=== PATIENT | female | born 1970 | race Caucasian/White ===

== ENCOUNTER 2020-07-07 07:00 | Day surgery (SDC) | payer BC ==
[~2020-07-07 07:00] MED LIST: Lactated Ringers 1,000 ML IV SCH; Lidocaine 1%/Sod Bicarbonate in NS 8.4% 1 ML Syringe IDERM PRN; Sodium Chloride 0.9% 10 ML Syringe FLUSH PRN
[2020-07-07] MEDS ORDERED: Bupivacaine 0.5%/EPINEPHrine 1:200,000 50 ML MDV ONE (07:12)
--- NOTE | 2020-07-07 08:53 | PCM.PRNOTE ---
- Free Text/Narrative Note: Date: 07/07/2020 Operation: wide local excision of scalp basal cell carcinoma Surgeon: Poncho Mcgrath MD Findings: 5 mm lesion at apical region of scalp, excised in a longitudinally oriented ellipse with gross 5 mm margin. Frozen section confirmed negative margins. Detailed Report: The patient was taken to the OR and placed supine. Time out was performed. The scalp hair around the lesion was clipped, and the skin was prepped with iodine solution. Sterile drapes were applied. A total of 10 cc 0.5% marcaine with epinephrine was injected intradermally around the lesion. An ellipse was marked, encompassing the lesion with a measured 5 mm gross margin. The 15 blade was used to incise through skin to subcutaneous fat. The specimen was marked with a silk stitch at the anterior aspect and sent for frozen section analysis. Margins were reported as negative. Hemostasis was achieved with monopolar energy. The wound was closed in layers, with interrupted 3-0 vicryl deep dermal sutures, a running subcuticular 4-0 vicryl, and reinforcing interrupted 3-0 monocryl at the surface. No dressing was applied. The patient tolerated the procedure well.
[2020-07-07 09:12] VITALS: BP 126/65; PULSE 61
== END 2020-07-07 09:35 | disposition home or self-care (01) ==
LOC: JD.SDS 07:00
PROVIDERS: ATTEND Surgery
DX: C44.41 Basal cell carcinoma of skin of scalp and neck (principal); Z88.0 Allergy status to penicillin
CPT/HCPCS: 11622; 13120; J3490